=== PATIENT | male | born 1930 | race Caucasian/White ===

== ENCOUNTER 2016-06-18 12:02 | Emergency (ER) | payer OTHER ==
[2016-06-18 12:19] VITALS: BP 100/60; TEMP 98.1; BMI 29.6
--- NOTE | 2016-06-18 12:28 | ED.PDOC ---
General ED Provider: Dr. BILL CAMACHO JR Chief Complaint: Altered Mental Status Stated Complaint: called daughter at 1130 AM possibly began at 11 or 1115 AM had set out lunch and taken a shower unsure what he was to do, unable to see could not recallw [employer] store he was to go to(had not left home);pt states he became confused earlier today--on his way to grocery and couldnt remember his way--eye sight was blurred--able to contact family --is alert now and able to recall event--recent onset of a-fib--was on blood-thinner briefly-while waiting for echo-4 weeks ago[End]98.1 83 20 98% 100/60 06/16 Time Seen by Physician: 12:28 Mode of Arrival: Walk-In Information Source: Patient Exam Limitations: No limitations Primary Care Provider: ABIGAIL VELAZQUEZ Nursing and Triage Documentation Reviewed and Agree: No Review of Systems - Review Of Systems Constitutional: Reports: No symptoms Eyes: Reports: 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) Ears, Nose, Mouth, Throat: Reports: No symptoms Respiratory: Reports: No symptoms Cardiac: Reports: No symptoms GI: Reports: No symptoms : Reports: No symptoms Musculoskeletal: Reports: No symptoms Skin: Reports: No symptoms Neurological: Reports: Cognitive dysfunction (confusion but able to call relatives) Endocrine: Reports: No symptoms Hematologic/Lymphatic: Reports: No symptoms All Other Systems: Other Past Medical History - Past Medical History Endocrine: Reports: Dyslipidemia (Zocor), Other ((Vitamin B-12)) Cardiovascular: Reports: CAD (Aspirin), A-Fib Respiratory: Reports: None Hematological: Reports: None Gastrointestinal: Reports: GERD (Prilosec) Genitourinary: Reports: Other (prosthyper= alfuzosin) Neuro/Psych: Reports: None, TIA (06/30/1986) Musculoskeletal: Reports: None Cancer: Reports: Other (afib cad macular degeneration--bladder ca ) Other Pertinent Past Medical History: macular degeneration - Surgical History General Surgical History: Reports: Other - Family History Family History: Reports: Unknown - Social History Smoking Status: Former smoker Hx Substance Use: No Alcohol Screening: None Physical Exam - Physical Exam Appearance: Well-appearing Eyes: JOHAN (unable to count fingers on right), EOMI, Conjunctiva clear ENT: Ears normal, Nose normal, Oropharynx normal Neck: Supple Respiratory: Airway patent, Breath sounds clear, Breath sounds equal, Respirations nonlabored Cardiovascular: Pulses normal, No rub, No murmur, Irregular rhythm GI/: Soft, Nontender, No masses, Bowel sounds normal, No Organomegaly Musculoskeletal: Normal strength, ROM intact, No edema, No calf tenderness Skin: Warm, Dry, Normal color Neurological: Sensation intact Psychiatric: Affect appropriate, Mood appropriate, Anxious Re-Evaluation - Re-Evaluation Time of Re-Evaluation: 15:42 (disc with tech- normal flows) Physician Notification - Case Discussed Physician Notified: fareed Time of Notification: 15:30 (discussed admission PMD recomendultrasound and followup in hospital for behavioral medicine if normal) Critical Care Note - Critical Care Note Total Time (mins): 20 Course - Course Hematology/Chemistry: 06/18/16 13:00 06/18/16 13:00 Orders, Labs, Meds: Lab Review 06/18/16 13:00 WBC 7.29 RBC 3.70 L Hgb 11.5 L Hct 34.0 L MCV 91.9 MCH 31.1 H MCHC 33.8 RDW Coeff of Thanh 13.9 Plt Count 211 Immature Gran % (Auto) 0.3 Neut % (Auto) 62.3 Lymph % (Auto) 26.1 Yates % (Auto) 7.5 Eos % (Auto) 3.3 Baso % (Auto) 0.5 Immature Gran # (Auto) 0.0 Neut # 4.5 Lymph # 1.9 Yates # 0.6 Eos # 0.2 Baso # 0.0 D-Dimer 544.33 H Sodium 139 Potassium 4.5 Chloride 106 Carbon Dioxide 24 Anion Gap 13.5 BUN 26 H Creatinine 1.35 H Estimated GFR (MDRD) 50.00 BUN/Creatinine Ratio 19.25 Glucose 107 Calcium 9.2 Total Bilirubin 0.75 AST 19 ALT 21 Alkaline Phosphatase 55 L Total Creatine Kinase 101 Troponin I 0.0200 B-Natriuretic Peptide 208 H Total Protein 7.2 Albumin 4.1 Globulin 3.1 Albumin/Globulin Ratio 1.32 Orders Category Date Time Status EKG-(ED ONLY) Stat CARDIO 06/18/16 12:34 Completed HOLTER MONITOR-(ED ONLY) Stat CARDIO 06/18/16 15:14 Ordered B-TYPE NATRIURETIC PEPTIDE Stat LAB 06/18/16 13:00 Completed CBC W/ AUTO DIFF Stat LAB 06/18/16 13:00 Completed COMPREHENSIVE METABOLIC PANEL Stat LAB 06/18/16 13:00 Completed CREATINE KINASE Stat LAB 06/18/16 13:00 Completed D-DIMER Stat LAB 06/18/16 13:00 Completed TROPONIN I Stat LAB 06/18/16 13:00 Completed CHEST, 1V AP ONLY Stat RADS 06/18/16 12:[address] HEAD W/O CONTRAST Stat RADS 06/18/16 12:34 Completed U/S DOPPLER CAROTID Stat RADS 06/18/16 15:07 Taken Vital Signs: Temp Pulse Resp BP Pulse Ox 06/18/16 12:03 98.1 F 83 20 100/60 98 Departure - Departure Time of Disposition: 15:41 Disposition: HOME SELF-CARE Discharge Problem: TIA (transient ischemic attack) Qualifiers: Transient cerebral ischemia type: unspecified Qualifier Code: (G45.9) Transient cerebral ischemic attack, unspecified Instructions: Transient Ischemic Attack (ED), Self Care Measures After a Stroke (ED) Condition: Good Pt referred to PMD for follow-up: Yes Additional Instructions: resume eliquis follow up with Dr Velazquez in the morning return if worse recommend check hourly next 24 hours for mental or physical changes Prescriptions: Apixaban [Eliquis] 5 mg PO BID #60 tablet Allergies/Adverse Reactions: Allergies No Known Allergies Allergy (Verified 06/18/16 12:13) Home Medications: Ambulatory Orders Alfuzosin HCl [Alfuzosin HCl ER] 10 mg PO DAILY 06/19/13 Aspirin [Aspirin EC] 81 mg PO DAILYWM 06/19/13 Beta-Carotene(A) W-C & E/Min [Ocutabs Tablet] 1 each PO BID 06/19/13 Cyanocobalamin (Vitamin B-12) [Vitamin B-12] 1,000 mcg PO DAILY 06/19/13 Omeprazole [Prilosec] 20 mg PO QDAC 06/19/13 Simvastatin [Zocor] 40 mg PO BEDTIME 06/19/13 Apixaban [Eliquis] 5 mg PO BID #60 tablet 06/18/16
--- NOTE | 2016-06-18 13:03 | DI ---
EXAM: Chest one view, frontal view only. HISTORY: Chest pain. COMPARISON: None available. FINDINGS: The heart size is normal. Median sternotomy wires are present. There is no pulmonary va scular congestion. Calcified pleural plaquing noted, consistent with prior asbestos exposure. The lungs are clear. No pleural effusion or pneumothorax is seen. No acute osseous abnormality is iden tified. IMPRESSION: No acute cardiopulmonary process.
--- NOTE | 2016-06-18 13:04 | CT ---
EXAM: CT head without contrast HISTORY: Confusion COMPARISON: CT head 07/15/2007 TECHNIQUE: Serial axial images of the brain were obtained from the skull base to the vertex without IV contrast. FINDINGS: The ventricles, cisterns and sulci are unchanged with mild generalized volume loss. The g ray-white matter junction is maintained. There is minimal scattered low attenuation in the perivent ricular white matter.No midline shift or mass is identified. There is no abnormal intra or extra-ax ial fluid collection. The paranasal sinuses demonstrates scattered mucosal thickening with leftward nasal septal deviation. The mastoid air cells are clear. The osseous calvarium is intact. IMPRESSION: 1. No acute intracranial abnormality or hemorrhage. If there is concern for stroke, MRI brain may be obtained. 2. Scattered microangiopathy and generalized volume loss. 3. Mild scattered mucosal thickening and nasal septal deviation.
[2016-06-18 13:07] LABS: BASOPHILS % (AUTO) 0.5 % (0.0-3.0); EOSINOPHILS # (AUTO) 0.2 K/ul (0.0-0.7); EOSINOPHILS % (AUTO) 3.3 % (0.0-7.0); HEMOGLOBIN 11.5 g/dl (14.0-18.0); IMMATURE GRANULOCYTE % (AUTO) 0.3 % (0.0-5.0); LYMPHOCYTES # (AUTO) 1.9 K/uL (0.60-3.4); LYMPHOCYTES % (AUTO) 26.1 (10.0-50.0); MEAN CORPUSCULAR HEMOGLOBIN 31.1 pg (27.0-31.0); MEAN CORPUSCULAR HGB CONC 33.8 (31.8-35.4); MEAN CORPUSCULAR VOLUME 91.9 fl (80.0-94.0); MONOCYTES # (AUTO) 0.6 K/uL (0.4-2.0); MONOCYTES % (AUTO) 7.5 (0-10); NEUTROPHILS # (AUTO) 4.5 K/ul (2.0-6.9); NEUTROPHILS % (AUTO) 62.3; PLATELET COUNT 211 10^3/uL (140-440); WHITE BLOOD COUNT 7.29 K/ul (4.2-10.2)
[2016-06-18 13:35] LABS: ALBUMIN 4.1 g/dL (3.4-5.0); ALBUMIN/GLOBULIN RATIO 1.32; ANION GAP 13.5; BILIRUBIN,TOTAL 0.75 mg/dL (0.00-1.20); BUN/CREATININE RATIO 19.25; CALCIUM 9.2 mg/dL (8.2-10.2); CREATININE 1.35 mg/dL (0.60-1.10); POTASSIUM 4.5 mmol/L (3.5-5.1); TOTAL PROTEIN 7.2 g/dL (5.8-8.1); TROPONIN I 0.02 ng/ml (0.0000-0.4000)
--- NOTE | 2016-06-18 16:14 | US ---
EXAM: ULTRASOUND CAROTID DUPLEX, BILATERAL HISTORY: TIA FINDINGS: Wilson-scale ultrasound, color Doppler and spectral analysis was performed. Velocities are in meters per second. By wilson scale and color Doppler imaging, there were regions of heterogeneous plaque formation ident ified within the carotid bulbs and internal carotid arteries. These regions of plaque appeared to r emain less than 50% vessel diameter. RIGHT: External carotid artery peak systolic velocity: 0.9 Common carotid artery peak systolic velocity/end diastolic velocity: 0.6/0.1 Internal carotid artery peak systolic velocity: 0.9 ICA/CCA peak systolic velocity ratio: 1.5 ICA end diastolic velocity: 0.1 LEFT: External carotid artery peak systolic velocity: 0.6 Common carotid artery peak systolic velocity/end diastolic velocity: 0.7/0.1 Internal carotid artery peak systolic velocity: 0.8 ICA/CCA peak systolic velocity ratio: 1.1 ICA end diastolic velocity: 0.2 The right vertebral artery was not seen. The left vertebral artery was antegrade. IMPRESSION: 1. By wilson scale and color Doppler imaging, there were regions of heterogeneous plaque formation id entified within the carotid bulbs and internal carotid arteries. These regions of plaque appeared t o remain less than 50% vessel diameter. 2. Internal carotid artery peak systolic velocities and ICA/CCA peak systolic velocity ratios indic ate no hemodynamically significant stenosis bilaterally. 3. The right vertebral artery was not seen which may be related to technical difficulties, small ca liber or occlusion. Left vertebral artery was normally antegrade.
--- NOTE | 2016-06-22 10:29 | HOLTER ---
PATIENT INFORMATION AND COMMENTS Indications: TIA __ Patient Medications: SIMVASTATIN, OMEPRAZOLE, BETA CAROTENE, ALFUZOSIN, VITAMIN B-12, ASA __ Pre-procedure Summary: Protocol: Standard Heart Rate Started: 06/18/161626 Minimum: 47/MIN Weight: 195 LBS Ended: 06/19/161626 Maximum: 145/MIN Height: 68" Duration: 21 HOURS Average: 74/MIN _ INTERPRETATIONS/OBSERVATIONS: 1. BASIC RHYTHM: A-FIB WITH RATE 47/MINUTE TO 125/MINUTE, AVERAGE 74/MINUTE 2. PVC'S- 1 TO 2% OF BEATS SCANNED, NO SALVOS OR V-TACH 3. NO ST-T WAVE CHANGES FROM BASELINE 4. NO CORRELATION WITH ACTIVITY LOG MTDD
== END 2016-06-18 16:38 | disposition home or self-care (01) ==
LOC: ED 12:02
DX: G45.9 Transient cerebral ischemic attack, unspecified (principal); I48.91 Unspecified atrial fibrillation; I45.10 Unspecified right bundle-branch block; E78.5 Hyperlipidemia, unspecified; I25.10 Atherosclerotic heart disease of native coronary artery without angina pectoris; H35.30 Unspecified macular degeneration; Z79.899 Other long term (current) drug therapy; Z86.73 Personal history of transient ischemic attack (TIA), and cerebral infarction without residual deficits
CPT/HCPCS: 36415; 80053; 82550; 83880; 84484; 85025; 85379; 93005; 93010; 99283

== ENCOUNTER 2016-06-19 12:55 | Outpatient (CLI) ==
[2016-06-18 12:19] VITALS: BMI 29.6
--- NOTE | 2016-06-19 20:59 | MRI ---
EXAM: Brain MRI without contrast. HISTORY: Transient ischemic attack. COMPARISON: Head CT 06/18/2016. TECHNIQUE: Multiplanar, multisequence MR images were acquired of the brain without contrast. FINDINGS: The midline structures are central and the craniocervical junction is unremarkable. The ventricles, sulci and cisterns are normal for the patient's age. There are no abnormal extra-axial fluid collections. The brain parenchyma has no diffusion restriction to suggest acute hypoperfusion or infarction. The re is a chronic 4.6 mm infarct in the inferior right cerebellum. There is a thin rim of periventric ular T2 hyperintensity and small T2 hyperintensities are present in the supratentorial white matter compatible with mild leukomalacia. There is no abnormal dark gradient echo signal to suggest intrac ranial hemorrhage. The corpus callosum is normal. The sella is expanded and the pituitary gland is small and flattened inferiorly consistent with a mostly empty sella. There are no intraorbital masses. There has been previous lens surgery bilaterally. There is mild undulation of the nasal septum with a small left nasal septal spur. The frontal sinus is hypoplasti c. Middle ears and mastoids are clear. Flow voids are present in the major intracranial arteries and dural venous sinuses. The superior sa gittal sinus preferentially drains into the left transverse dural sinus, sigmoid sinus and internal jugular vein which are dominant to the right. Arachnoid granulations are present in both transverse dural sinuses. IMPRESSION: 1. No intracranial mass, hemorrhage or acute cerebral infarct. 2. 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 3. Mostly empty sella.
== END 2016-06-19 12:56 | disposition home or self-care (01) ==
LOC: RAD 12:55
PROVIDERS: ATTEND Family Medicine
DX: I48.2 Chronic atrial fibrillation (principal); I66.9 Occlusion and stenosis of unspecified cerebral artery

== ENCOUNTER 2017-09-16 16:41 | Inpatient (IN) | payer OTHER ==
[2017-09-16] MEDS ORDERED: PULMICORT 0.5 MG/2 ML NEB STA (18:30)
[2017-09-16] MEDS ORDERED: XOPENEX 1.25 MG NEB STA (18:30)
--- NOTE | 2017-09-16 18:34 | ED.PDOC ---
General ED Provider: Dr. ABIGAIL GORE Chief Complaint: Shortness of Air Stated Complaint: Respiratory congestion, shortness of breath. Onset last few days. Hx of bronchitis but does not utilize resp meds. 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 Time Seen by Physician: 18:15 Mode of Arrival: Walk-In Information Source: Patient, Family Exam Limitations: No limitations Primary Care Provider: ABIGAIL VELAZQUEZ Nursing and Triage Documentation Reviewed and Agree: Yes Reviewed sepsis parameters & appropriate labs ordered?: Yes System Inflammatory Response Syndrome: Not Applicable Sepsis Protocol: For patient's 13 years and over: Temp is 96.8 and below OR 101 and greater Pulse >90 BPM Resp >20/minute Acutely Altered Mental Status Are patient's symptoms suggestive of a new infection, such as: -Pneumonia -Skin, Soft Tissue -Endocarditis -UTI -Bone, Joint Infection -Implantable Device -Acute Abdominal Infection -Wound Infection -Meningitis -Blood Stream Catheter Infection -Unknown System Inflammatory Response Syndrome: Not Applicable Respiratory Complaint Exam - Shortness of Air Complaint/Exam Symptoms Are: Still present Timing: Intermittent Initial Severity: Moderate Current Severity: Moderate Character: Reports: Dyspnea at rest, Dyspnea on exertion Aggravating: Reports: Movement, Recumbent position Alleviating: Reports: Bronchodilators, Oxygen, Upright position Associated Signs and Symptoms: Reports: Cough, Wheezing, Nasal congestion Related History: Reports: Similar episode History of Healthcare-Acquired Pneumonia: No Pulmonary Embolism Risk Factors: Reports: None Cardiac Risk Factors: Reports: None Pseudomonas Risk Factors: Reports: None Tuberculosis Risk Factors: Reports: None Home Oxygen Use: No Recent Stress Test: No Recent Echo/LV Function: No Respiratory Distress: Mild Stridor Present: No Tracheal Deviation: No Subcutaneous Emphysema: No Accessory Muscle Use: No Retractions: Not Present Diminished Breath Sounds: Yes Prolonged Expiratory Phase: No Unable to Speak Full Sentences: No Fatigue: Yes Leg Swelling: No Sydney's Sign Present: No Grunting Respirations: No Kussmaul Respirations: No Differential Diagnoses: COPD Exacerbation, Bronchospasm Review of Systems - Review Of Systems Constitutional: Reports: No symptoms Eyes: Reports: No symptoms Ears, Nose, Mouth, Throat: Reports: No symptoms Respiratory: Reports: No symptoms, Cough, Orthopnea, Short of air, Wheezing Cardiac: Reports: No symptoms GI: Reports: No symptoms : Reports: No symptoms Musculoskeletal: Reports: No symptoms Skin: Reports: No symptoms Neurological: Reports: No symptoms Endocrine: Reports: No symptoms Hematologic/Lymphatic: Reports: No symptoms All Other Systems: Reviewed and Negative Past Medical History - Past Medical History Endocrine: Reports: Dyslipidemia (Zocor), Other ((Vitamin B-12)) Cardiovascular: Reports: CAD (Aspirin), A-Fib Respiratory: Reports: None Hematological: Reports: None Gastrointestinal: Reports: GERD (Prilosec) Genitourinary: Reports: Other (prosthyper= alfuzosin) Neuro/Psych: Reports: None, TIA (06/30/1986) Musculoskeletal: Reports: None Cancer: Reports: Other (afib cad macular degeneration--bladder ca ) Other Pertinent Past Medical History: macular degeneration - Surgical History General Surgical History: Reports: Other - Family History Family History: Reports: Unknown - Social History Smoking Status: Former smoker Hx Substance Use: No Alcohol Screening: None - Immunizations Tetanus Shot up to Date: No Physical Exam - Physical Exam Appearance: Ill-appearing, Well-nourished, Obese Ill-appearing: Moderate Pain Distress: None Eyes: JOHAN, EOMI, Conjunctiva clear ENT: Ears normal, Nose normal, Oropharynx normal Respiratory: Airway patent, Breath sounds diminished, Rhonchi, Wheezes Cardiovascular: RRR, Pulses normal, No rub, No murmur GI/: Soft, Nontender, No masses, Bowel sounds normal, No Organomegaly Musculoskeletal: Normal strength, ROM intact, No edema, No calf tenderness Skin: Warm, Dry, Normal color Neurological: Sensation intact, Motor intact, Reflexes intact, Cranial nerves intact, Alert, Oriented Psychiatric: Affect appropriate, Mood appropriate Physician Notification - Case Discussed Physician Notified: Dr Bucio Time of Notification: 20:10 (Agreed to accept for admission) Critical Care Note - Critical Care Note Total Time (mins): 30 Course - Course Hematology/Chemistry: 09/16/17 18:44 09/16/17 18:44 Orders, Labs, Meds: Lab Review 09/16/17 09/16/17 09/16/17 18:28 18:32 18:44 WBC 5.39 RBC 3.30 L Hgb 10.5 L Hct 30.1 L MCV 91.2 MCH 31.8 H MCHC 34.9 RDW Coeff of Thanh 14.6 Plt Count 164 Immature Gran % (Auto) 0.2 Neut % (Auto) 81.6 Lymph % (Auto) 9.8 L [place] % (Auto) 8.2 Eos % (Auto) 0.2 Baso % (Auto) 0.0 Immature Gran # (Auto) 0.0 Neut # (Auto) 4.4 Lymph # (Auto) 0.5 L [place] # (Auto) 0.4 Eos # (Auto) 0.0 Baso # (Auto) 0.0 ESR D-Dimer (Manual) Puncture Site Rrad O2 Saturation 95.0 ABG pH 7.437 ABG pCO2 32.4 L ABG pO2 72.0 L ABG HCO3 21.8 L ABG Total CO2 23 ABG Base Excess -2 Hugo Test + FiO2 % 21.0 Sodium Potassium Chloride Carbon Dioxide Anion Gap BUN Creatinine Estimated GFR (MDRD) BUN/Creatinine Ratio Glucose Lactic Acid Calcium Total Bilirubin AST ALT Alkaline Phosphatase Troponin I B-Natriuretic Peptide Total Protein Albumin Globulin Albumin/Globulin Ratio Procalcitonin Influ A Molecular Assay Negative by naat Influ B Molecular Assay Negative by naat 09/16/17 09/16/17 09/16/17 18:44 18:44 18:44 WBC RBC Hgb Hct MCV MCH MCHC RDW Coeff of Thanh Plt Count Immature Gran % (Auto) Neut % (Auto) Lymph % (Auto) [place] % (Auto) Eos % (Auto) Baso % (Auto) Immature Gran # (Auto) Neut # (Auto) Lymph # (Auto) [place] # (Auto) Eos # (Auto) Baso # (Auto) ESR 25 H D-Dimer (Manual) Puncture Site O2 Saturation ABG pH ABG pCO2 ABG pO2 ABG HCO3 ABG Total CO2 ABG Base Excess Hugo Test FiO2 % Sodium 134 L Potassium 3.8 Chloride 104 Carbon Dioxide 22 L Anion Gap 11.8 BUN 15 Creatinine 1.00 Estimated GFR (MDRD) 71.00 BUN/Creatinine Ratio 15.00 Glucose 124 H Lactic Acid Calcium 7.9 L Total Bilirubin 0.7 AST 22 ALT 16 Alkaline Phosphatase 67 Troponin I B-Natriuretic Peptide 376 H Total Protein 6.3 Albumin 3.7 Globulin 2.6 Albumin/Globulin Ratio 1.42 Procalcitonin Influ A Molecular Assay Influ B Molecular Assay 09/16/17 09/16/17 09/16/17 18:44 18:44 18:44 WBC RBC Hgb Hct MCV MCH MCHC RDW Coeff of Thanh Plt Count Immature Gran % (Auto) Neut % (Auto) Lymph % (Auto) [place] % (Auto) Eos % (Auto) Baso % (Auto) Immature Gran # (Auto) Neut # (Auto) Lymph # (Auto) [place] # (Auto) Eos # (Auto) Baso # (Auto) ESR D-Dimer (Manual) 402.62 Puncture Site O2 Saturation ABG pH ABG pCO2 ABG pO2 ABG HCO3 ABG Total CO2 ABG Base Excess Hugo Test FiO2 % Sodium Potassium Chloride Carbon Dioxide Anion Gap BUN Creatinine Estimated GFR (MDRD) BUN/Creatinine Ratio Glucose Lactic Acid Calcium Total Bilirubin AST ALT Alkaline Phosphatase Troponin I 0.0260 B-Natriuretic Peptide Total Protein Albumin Globulin Albumin/Globulin Ratio Procalcitonin < 0.05 Influ A Molecular Assay Influ B Molecular Assay 09/16/17 18:59 WBC RBC Hgb Hct MCV MCH MCHC RDW Coeff of Thanh Plt Count Immature Gran % (Auto) Neut % (Auto) Lymph % (Auto) [place] % (Auto) Eos % (Auto) Baso % (Auto) Immature Gran # (Auto) Neut # (Auto) Lymph # (Auto) [place] # (Auto) Eos # (Auto) Baso # (Auto) ESR D-Dimer (Manual) Puncture Site O2 Saturation ABG pH ABG pCO2 ABG pO2 ABG HCO3 ABG Total CO2 ABG Base Excess Hugo Test FiO2 % Sodium Potassium Chloride Carbon Dioxide Anion Gap BUN Creatinine Estimated GFR (MDRD) BUN/Creatinine Ratio Glucose Lactic Acid 17.6 Calcium Total Bilirubin AST ALT Alkaline Phosphatase Troponin I B-Natriuretic Peptide Total Protein Albumin Globulin Albumin/Globulin Ratio Procalcitonin Influ A Molecular Assay Influ B Molecular Assay Orders Category Date Time Status ADMIT PATIENT [facility]PAT[facility] ADMISSION 09/16/17 20: 03 Active ABG DRAW REQUEST Stat CARDIO 09/16/17 18:30 Ordered ABG DRAW REQUEST Timed CARDIO 09/17/17 06:00 Ordered EKG-(ED ONLY) Stat CARDIO 09/16/17 18:29 Ordered NEBULIZER TREATMENT Stat CARDIO 09/16/17 18:31 Ordered OXYGEN Routine CARDIO 09/16/17 20:03 Ordered SPUTUM INDUCTION Stat CARDIO 09/16/17 20:03 Ordered ACTIVITY .Up ad Emily CARE 09/16/17 20:03 Ordered INTAKE & OUTPUT Q8HR CARE 09/16/17 20:03 Ordered TELEMETRY MONITORING TELE CARE 09/16/17 20:04 Active VITAL SIGNS Q4HR CARE 09/16/17 20:03 Ordered 2 GRAM SODIUM DIET DIETARY 09/16/17 Dinner Ordered IV [ED IV/MEDIPORT/POWERPORT] .ONCE EMERGENCY 09/16/17 18:44 Active ABG Stat LAB 09/16/17 18:28 Completed ABG Stat LAB 09/17/17 07:00 Ordered BLOOD CULTURE (ED ONLY) Stat LAB 09/16/17 18:59 Received BLOOD CULTURE Stat LAB 09/16/17 21:00 Ordered BNP [B-TYPE NATRIURETIC PEPTIDE] Stat LAB 09/16/17 18:44 Completed CBC W/ AUTO DIFF Stat LAB 09/16/17 18:44 Completed CBC W/ AUTO DIFF Stat LAB 09/17/17 06:00 Ordered CMP [COMPREHENSIVE METABOLIC PANEL] Stat LAB 09/16/17 18:44 Completed COMPREHENSIVE METABOLIC PANEL Stat LAB 09/17/17 06:00 Ordered D-DIMER Stat LAB 09/16/17 18:44 Completed ESR Stat LAB 09/16/17 18:44 Completed FLU A & B MOLECULAR [FLU A/B MOLECULAR] Stat LAB 09/16/17 18:32 Completed LACTIC ACID Stat LAB 09/16/17 18:59 Completed PROCALCITONIN Stat LAB 09/16/17 18:44 Completed SPUTUM CULTURE Stat LAB 09/16/17 18:28 Uncollected TROPONIN I Stat LAB 09/16/17 18:44 Completed TROPONIN I Stat LAB 09/16/17 22:30 Ordered 0.9 % Sodium Chloride [Saline Flush] MEDS 09/16/17 18:45 Ordered 1 syr IVF PRN PRN Albuterol Sulfate 0.083% Neb [Albuterol 0.083% Neb] MEDS 09/16/17 20:30 Ordered 1 vial IH Q6H Alfuzosin HCl [Uroxatral] MEDS 09/17/17 09:00 Ordered 10 mg PO DAILY Apixaban [Eliquis] MEDS 09/16/17 21:00 Ordered 5 mg PO BID Aspirin [Aspirin EC] MEDS 09/17/17 08:00 Ordered 81 mg PO DAILYWM Azithromycin [Zithromax] MEDS 09/16/17 18:47 Discontinued 500 mg PO ONCE STA Beta-Carotene(A)-Vits C,E/Mins [Ocutabs Tablet] MEDS 09/16/17 21:00 Ordered 1 each PO BID Budesonide [Pulmicort 0.5 mg/2 ml] MEDS 09/16/17 18:30 Discontinued 1 vial NEB ONCE STA Ceftriaxone Sodium [Rocephin] MEDS 09/16/17 19:08 Discontinued 1 gm .ROUTE .STK-MED ONE Ceftriaxone Sodium [Rocephin] 1 gm MEDS 09/16/17 18:47 Discontinued 0.9 % Sodium Chloride [Sodium Chloride] 50 ml IV ONCE Cyanocobalamin (Vitamin B-12) [Vitamin B-12] MEDS 09/17/17 09:00 Ordered 1,000 mcg PO DAILY Furosemide [Lasix] MEDS 09/16/17 20:03 Stat 40 mg IVP ONCE STA Levalbuterol HCl [Xopenex 1.25 mg] MEDS 09/16/17 18:30 Discontinued 1 vial NEB ONCE STA Memantine HCl [Namenda Xr] MEDS 09/17/17 09:00 Ordered 1 tab PO DAILY Methylprednisolone Sod Succ/Pf [Solu-Medrol 125 mg] MEDS 09/16/17 20:00 Stop Req 75 mg IM ONCE STA Methylprednisolone Sod Succ/Pf [Solu-Medrol 125 mg] MEDS 09/16/17 20:02 Stat 80 mg IVP ONCE STA Omeprazole [Prilosec] MEDS 09/17/17 06:30 Ordered 20 mg PO QDAC Simvastatin [Zocor] MEDS 09/16/17 21:00 Ordered 40 mg PO BEDTIME Sodium Chloride 0.9% [Sodium Chloride] 1,000 ml MEDS 09/16/17 20:30 Ordered IV 40 mls/hr CHEST, 1V AP ONLY Stat RADS 09/16/17 18:29 Completed CHEST, 2 VIEWS PA & LAT Stat RADS 09/17/17 06:00 Ordered Medications Generic Name Dose Route Start Last Admin Trade Name Freq PRN Reason Stop Dose Admin Albuterol Sulfate 1 vial 09/16/17 20:30 Albuterol 0.083% Neb IH Q6H GURMEET Alfuzosin HCl 10 mg 09/17/17 09:00 Uroxatral PO DAILY GURMEET Apixaban 5 mg 09/16/17 21:00 Eliquis PO BID GURMEET Aspirin 81 mg 09/17/17 08:00 Aspirin Ec PO DAILYWM GURMEET Sodium Chloride 1,000 mls @ 40 mls/hr 09/16/17 20:30 Sodium Chloride IV .Q25H GURMEET Non-Formulary Medication 1 each 09/16/17 21:00 Beta-Carotene(A)-Vits C,E/Mins [Ocutabs Tablet] PO BID GURMEET Non-Formulary Medication 1,000 mcg 09/17/17 09:00 Cyanocobalamin (Vitamin B-12) [Vitamin B-12] PO DAILY GURMEET Non-Formulary Medication 1 tab 09/17/17 09:00 Memantine Hcl [Namenda Xr] PO DAILY GURMEET Omeprazole 20 mg 09/17/17 06:30 Prilosec PO QDAC GURMEET Simvastatin 40 mg 09/16/17 21:00 Zocor PO BEDTIME GURMEET Sodium Chloride 1 syr 09/16/17 18:45 09/16/17 19:18 Saline Flush IVF 1 syr PRN PRN Administration To flush IV Discontinued Medications Generic Name Dose Route Start Last Admin Trade Name Freq PRN Reason Stop Dose Admin Azithromycin 500 mg 09/16/17 18:47 09/16/17 19:17 Zithromax PO 09/16/17 18:48 500 mg ONCE STA Administration Budesonide 1 vial 09/16/17 18:30 09/16/17 18:35 Pulmicort 0.5 Mg/2 Ml NEB 09/16/17 18:31 1 vial ONCE STA Administration Furosemide 40 mg 09/16/17 20:03 Lasix IVP 09/16/17 20:04 ONCE STA Ceftriaxone Sodium 1 gm/ 50 mls @ 75 mls/hr 09/16/17 18:47 09/16/17 19:17 Sodium Chloride IV 09/16/17 19:26 75 mls/hr ONCE STA Administration Levalbuterol HCl 1 vial 09/16/17 18:30 09/16/17 18:35 Xopenex 1.25 Mg NEB 09/16/17 18:31 1 vial ONCE STA Administration Methylprednisolone Sodium Succinate 75 mg 09/16/17 20:00 Solu-Medrol 125 Mg IM 09/16/17 20:01 ONCE STA Methylprednisolone Sodium Succinate 80 mg 09/16/17 20:02 Solu-Medrol 125 Mg IVP 09/16/17 20:03 ONCE STA Vital Signs: Temp Pulse Resp BP Pulse Ox 09/16/17 18:53 145/80 H 09/16/17 18:36 84 20 114/86 94 L 09/16/17 17:52 145/63 H 09/16/17 17:42 87 25 H 139/65 94 L 09/16/17 16:42 97.6 F 91 H 20 168/85 H 95 Departure - Departure Time of Disposition: 20:20 Disposition: ADMITTED INPATIENT Discharge Problem: Pneumonia, COPD with acute exacerbation, CHF (congestive heart failure) Instructions: COPD (Chronic Obstructive Pulmonary Disease) (ED) Condition: Stable Pt referred to PMD for follow-up: Yes (Dr Gan) IPMP verified?: No Allergies/Adverse Reactions: Allergies No Known Allergies Allergy (Verified 09/16/17 16:55) Home Medications: Ambulatory Orders Aspirin [Aspirin EC] 81 mg PO DAILYWM 06/19/13 Beta-Carotene(A)-Vits C,E/Mins [Ocutabs Tablet] 1 each PO BID 06/19/13 Cyanocobalamin (Vitamin B-12) [Vitamin B-12] 1,000 mcg PO DAILY 06/19/13 Omeprazole [Prilosec] 20 mg PO QDAC 06/19/13 RX: Alfuzosin HCl [Alfuzosin HCl ER] 10 mg PO DAILY 06/19/13 Simvastatin [Zocor] 40 mg PO BEDTIME 06/19/13 Apixaban [Eliquis] 5 mg PO BID #60 tablet 06/18/16 RX: Memantine HCl [Namenda Xr] 1 tab PO DAILY 09/16/17 Disposition Discussed With: Patient, Family
[2017-09-16] MEDS ORDERED: ZITHROMAX PO STA (18:47)
[2017-09-16] MEDS ORDERED: ROCEPHIN 1 GM in SODIUM CHLORIDE 50 ML IV STA (18:47)
[2017-09-16] MEDS ORDERED: ROCEPHIN ONE (19:08)
--- NOTE | 2017-09-16 19:16 | DI ---
EXAM: Single view chest. HISTORY: Dyspnea congestion. COMPARISON: 06/18/2016 FINDINGS: A single portable AP view of the chest. There are postoperative changes from prior CABG. LUNGS: The lung volumes are normal. There are densities in the upper lobes bilaterally which are unch anged with prior study may be secondary to calcified pleural plaque or healing rib fractures. These are seen on the prior study and are unchanged. There is no lobar consolidation or effusion. The pulm onary interstitium is normal. There are no suspicious nodules. MEDIASTINUM: The heart is enlarged. There is mild interstitial prominence, left greater than right. The aorta is tortuous and calcified. OSSEOUS STRUCTURES: The osseous structures show mild degenerative changes consistent with age. The so ft tissues are unremarkable. IMPRESSION: 1. Cardiomegaly and interstitial prominence. Findings suggest early edema. 2. Bilateral upper lobe calcifications which may be due to calcified pleural plaque or healing rib f ractures. A similar appearance was seen on the prior study.
[2017-09-16] MEDS ORDERED: SOLU-MEDROL 125 MG IM STA (20:00)
[2017-09-16] MEDS ORDERED: SOLU-MEDROL 125 MG IVP STA (20:02)
[2017-09-16] MEDS ORDERED: LASIX IVP STA (20:03)
[2017-09-16] MEDS ORDERED: SODIUM CHLORIDE 1,000 ML IV SCH (20:30)
[2017-09-16] MEDS ORDERED: ALBUTEROL 0.083% NEB IH SCH (20:30)
[2017-09-16] MEDS ORDERED: BETA CAROTENE VITS C E PO SCH (21:00)
[2017-09-16] MEDS ORDERED: MINS PO SCH (21:00)
[2017-09-16 21:21] VITALS: BMI 30.1
[2017-09-16] MEDS: ZOCOR PO SCH (21:41)
[2017-09-16] MEDS: ELIQUIS PO SCH (21:41)
[2017-09-17] MEDS: ALBUTEROL 0.083% NEB IH SCH ×2 (01:12→05:08)
[2017-09-17] MEDS ORDERED: ALBUTEROL 0.083% NEB IH SCH ×2 (06:00→12:00)
[2017-09-17] MEDS: PRILOSEC PO SCH (06:00)
[2017-09-17] MEDS ORDERED: ATIVAN IM STA (07:17)
[2017-09-17] MEDS ORDERED: ATIVAN IVP STA (07:17)
[2017-09-17] MEDS ORDERED: MEMANTINE HCL PO SCH (09:00)
[2017-09-17] MEDS: ASPIRIN EC PO SCH (09:26)
[2017-09-17] MEDS: UROXATRAL PO SCH (09:26)
[2017-09-17] MEDS: NAMENDA PO SCH ×2 (09:27→21:19)
[2017-09-17] MEDS: ELIQUIS PO SCH ×2 (09:27→21:19)
[2017-09-17] MEDS: BETA CAROTENE VITS C E PO SCH ×2 (09:41→21:19)
[2017-09-17] MEDS: MINS PO SCH ×2 (09:41→21:19)
[2017-09-17] MEDS: NON-FORMULARY MEDICATION (Cyanocobalamin (Vitamin B-12) [Vitamin B-12] 1,000 MCG) PO SCH (09:42)
--- NOTE | 2017-09-17 15:17 | DI ---
EXAM: Single AP view of the chest HISTORY: Chronic obstructive pulmonary disease and wheezing. COMPARISON: Chest x-ray 09/16/2017 and 06/18/2016 FINDINGS: Cardiomediastinal silhouette is unchanged with intact sternotomy wires. There is no pneumo thorax or pleural effusion. There is no consolidation or mass. Unchanged pleural calcifications are present. The osseous structures are unremarkable. IMPRESSION: 1. No acute cardiopulmonary process or consolidation. 2. Stable pleural calcifications.
[2017-09-17] MEDS ORDERED: ALBUTEROL 0.083% NEB NEB SCH (18:00)
[2017-09-17] MEDS ORDERED: LASIX IVP STA (18:25)
[2017-09-17] MEDS: ZOCOR PO SCH (21:20)
[2017-09-17] MEDS ORDERED: ALBUTEROL 0.083% NEB NEB ONE (23:29)
[2017-09-18] MEDS ORDERED: ATIVAN IVP STA (06:11)
[2017-09-18] MEDS ORDERED: LASIX IVP STA ×2 (06:11→09:01)
[2017-09-18] MEDS: PRILOSEC PO SCH (06:36)
[2017-09-18] MEDS: UROXATRAL PO SCH (08:42)
[2017-09-18] MEDS: NAMENDA PO SCH ×2 (08:42→20:27)
[2017-09-18] MEDS: NON-FORMULARY MEDICATION (Cyanocobalamin (Vitamin B-12) [Vitamin B-12] 1,000 MCG) PO SCH (08:43)
[2017-09-18] MEDS: ASPIRIN EC PO SCH (08:43)
[2017-09-18] MEDS: MINS PO SCH ×2 (08:43→20:32)
[2017-09-18] MEDS: BETA CAROTENE VITS C E PO SCH ×2 (08:43→20:32)
[2017-09-18] MEDS: ELIQUIS PO SCH ×2 (08:44→20:26)
[2017-09-18] MEDS: ZOCOR PO SCH (20:27)
[2017-09-19] MEDS: PRILOSEC PO SCH (05:45)
[2017-09-19] MEDS ORDERED: LASIX IVP STA (08:09)
[2017-09-19] MEDS: ASPIRIN EC PO SCH (08:25)
[2017-09-19] MEDS: NON-FORMULARY MEDICATION (Cyanocobalamin (Vitamin B-12) [Vitamin B-12] 1,000 MCG) PO SCH (08:25)
[2017-09-19] MEDS: MINS PO SCH (08:25)
[2017-09-19] MEDS: BETA CAROTENE VITS C E PO SCH (08:25)
[2017-09-19] MEDS: NAMENDA PO SCH (08:25)
[2017-09-19] MEDS: ELIQUIS PO SCH (08:28)
[2017-09-19] MEDS: UROXATRAL PO SCH (08:28)
[2017-09-19 09:40] VITALS: BP 141/68; TEMP 98.5
--- NOTE | 2017-10-04 09:24 | HP ---
CHIEF COMPLAINT: " I couldn't breathe." DISCUSSION: This is an 87 year old gentleman with a history of cardiomyopathy, atrial fibrillation on Eliquis as well as Dementia. He present to the [facility] Emergency Department with acute onset of shortness of breath. He has had shortness of breath associated with PND and Orthopnea. His family said that his shortness of breath with severe. He was seen in the emergency department and thought to have evidence of CHF, in the emergency department he was hypoxic with an O2 saturation of 94%. Radiographs were suggestive of a congestive heart failure process and the patient was subsequent admitted to my services for evaluation and treatment. PAST MEDICAL HISTORY: MEDICATIONS: Aspirin Vitamin B12 Prilosec Alfuzosin Zocor Eliquis Namenda XR ALLERGIES: No known drug allergies PAST MEDICAL HISTORY: History of COPD Congestive heart failure GERD Hyperlipidemia History of coronary artery disease History of atrial fibrillation History of bladder CA History of macular degeneration SOCIAL HISTORY: Previous smoker and denies any alcohol or tobacco use. FAMILY HISTORY: Reviewed and thought not to be pertinent to discussion. REVIEW OF SYSTEMS: No headaches, visual changes, tinnitus, hemoptysis, blood in the stool, urinary symptoms or seizures. Shortness of breath as well as orthopnea. PHYSICAL EXAMINATION: V/S: Temperature 97.6, pulse 92, respiratory 20, blood pressure 168/85. HEENT: Pupils are round. NECK: Supple. CHEST: Bilateral rales CARDIOVASCULAR: Regular rate and rhythm. ABDOMEN: Soft, nontender. EXTREMITIES: Distal extremities without cyanosis. Trace edema. ASSESSMENT: 1. Probably exacerbation of congestive heart failure most likely a diastolic disfunction. PLAN: 1. Echo in 2011 does reveal history of cardiomyopathy, we do not have the ability to get an echo this weekend. We will schedule this as an outpatient on discharge 2. Diuresis 3. Follow oxygen levels 4. Please see orders. MTDD
--- NOTE | 2017-10-04 09:41 | DS ---
PRINCIPAL DIAGNOSIS: Congestive heart failure mostly likely diastolic dysfunction Atrial fibrillation COPD Dementia DISCUSSION: This is an 87 year old gentleman with a history of cardiomyopathy, atrial fibrillation on Eliquis as well as Dementia. He present to the [facility] Emergency Department with acute onset of shortness of breath. He has had shortness of breath associated with PND and Orthopnea. His family said that his shortness of breath with severe. He was seen in the emergency department and thought to have evidence of CHF, in the emergency department he was hypoxic with an O2 saturation of 94%. Radiographs were suggestive of a congestive heart failure process and the patient was subsequent admitted to my services for evaluation and treatment. CLINICAL COURSE: Mr. Valencia was admitted diuresed with good improvement. His lung sounds almost clear remotely. Repeat chest x-ray revealed improvement in the pulmonary edema. His renal functions remained stable and at this point we felt that the patient would be discharged with a prescription for Lasix as well as Potassium but we are going to order an outpatient echo, his utilities service investigator is Dr. Ruano at [facility], for the repeat echo at [facility] and we will see him followup in one week. FAUSTO
== END 2017-09-19 13:10 | disposition home or self-care (01) | DRG 291 ==
LOC: ED 16:41 → MEDSURG B 20:20
PROVIDERS: ADMIT Family Medicine; ATTEND Family Medicine
DX: I50.30 Unspecified diastolic (congestive) heart failure (principal); J44.1 Chronic obstructive pulmonary disease with (acute) exacerbation; I42.9 Cardiomyopathy, unspecified; J18.9 Pneumonia, unspecified organism; R09.02 Hypoxemia; F03.90 Unspecified dementia, unspecified severity, without behavioral disturbance, psychotic disturbance, mood disturbance, and anxiety; R06.02 Shortness of breath; I48.91 Unspecified atrial fibrillation; R07.9 Chest pain, unspecified; R06.2 Wheezing; Z86.73 Personal history of transient ischemic attack (TIA), and cerebral infarction without residual deficits; Z79.01 Long term (current) use of anticoagulants; Z79.899 Other long term (current) drug therapy; Z85.51 Personal history of malignant neoplasm of bladder
CPT/HCPCS: 36415; 80048; 80053; 82803; 83605; 83880; 84145; 84484; 85025; 85379; 85651; 87040; 87502; 93005; 93010; 94640; 96365; 96375; 99285

== ENCOUNTER 2018-02-09 12:18 | Outpatient (CLI) | payer OTHER ==
--- NOTE | 2018-02-09 15:14 | MRI ---
EXAM: MRI brain without and with IV contrast. DATE: February 2018. HISTORY: Headache. TECHNIQUE: Sagittal T1W pre and postcontrast, axial T2W, axial FLAIR, axial T1W pre and postcontrast , axial DWI, coronal T1W postcontrast, and coronal T2W GRE sequences of the brain were obtained using 1.2 Adia magnet. CONTRAST: Dotarem - 17 ml IV. COMPARISON: MRI brain 06/19/2016. FINDINGS: The ventricles, cisterns, sulci and subarachnoid spaces are commensurately enlarged due to involutional change. No midline shift, mass effect or abnormal extra-axial fluid collection is appa rent. No acute infarct, hemorrhage or enhancing neoplasm is identified. No abnormal contrast enhanc ement is identified in the brain, meninges or dura. Small, confluent rim of T2W/FLAIR hyperintensity is observed in the white matter abutting each lateral ventricle. A handful of 2-4 mm, T2W/FLAIR howard ght, non-enhancing foci are scattered within the carter radiata and subcortical white matter bilatera lly. The guadalupe - white matter differentiation is normal. Tiny areas of T2W GRE dark signal within ea ch basal ganglia appear benign. No migration or diverticulation abnormality is identified. The amyg dala, hippocampus, and parahippocampal gyri are similar bilaterally. The 7th/8th cranial nerve compl exes, cerebellopontine angles, brainstem, and visible cervical spinal cord are normal. There is no c erebellar tonsillar ectopia. The pituitary gland is extremely small and flattened against the floor of the sella, with CSF filling the majority of the pituitary fossa. Corpus callosum is normal in siz e and configuration. Left vertebral artery is dominant. Right vertebral artery is diminutive in siz e. Flow voids are present in the major intracranial arteries and in the dural venous sinuses. No an eurysm, AVM or dural venous sinus thrombosis is apparent. Appearance of the lens of each eye suggest s prior cataract surgery. There is borderline orbital proptosis bilaterally. Small of fluid signal is observed within each optic nerve sheath. No other orbit abnormality is identified. The mastoid a ir cells are unremarkable. There is no acute sinusitis. No neck mass or lymphadenopathy is detected . No calvarial neoplasm or acute fracture is evident. IMPRESSIONS: 1. No acute infarct, hemorrhage, enhancing neoplasm or hydrocephalus. 2. Mild cerebral leukomalacia - likely small vessel disease or chronic hypertensive encephalopathy. 3. Minor, benign bilateral basal ganglia mineral deposition. 4. Mild/moderate cerebral and minor cerebellar atrophy. 5. Very small pituitary gland - empty sella appearance. 6. In the right clinical setting, idiopathic intracranial hypertension could be considered given the fluid in the optic nerve sheaths and empty sella appearance.
== END 2018-02-09 12:19 | disposition home or self-care (01) ==
LOC: RAD 12:18
PROVIDERS: ATTEND Nurse Practitioner
DX: R51 Headache (principal); R53.83 Other fatigue
CPT/HCPCS: 36415; 80048; 82565

== ENCOUNTER 2018-02-23 13:52 | Outpatient (CLI) | END 2018-02-23 13:53 | disposition home or self-care (01) | LOC: LAB 13:52 | PROVIDERS: ATTEND Internal Medicine Hematology & Oncology | DX: D64.9 Anemia, unspecified (principal) | CPT/HCPCS: 36415; 80053; 82785; 84165; 85025; 86320 ==

== ENCOUNTER 2020-03-02 09:25 | Inpatient (IN) ==
[2020-03-02 11:02] VITALS: BMI 23.8
[2020-03-02 14:59] LABS: CREATINE KINASE 66.6 U/L (55-170)
[2020-03-02 15:12] LABS: TROPONIN I < 0.012 ng/ml (0.0000-0.120)
[2020-03-02 17:16] LABS: BASOPHILS % (AUTO) 0.2 % (0.0-3.0); EOSINOPHILS # (AUTO) 0.1 K/ul (0.0-0.7); EOSINOPHILS % (AUTO) 0.9 % (0.0-7.0); HEMATOCRIT 29.5 % (42.0-52.0); HEMOGLOBIN 9.8 g/dl (14.0-18.0); IMMATURE GRANULOCYTE % (AUTO) 0.4 % (0.0-5.0); LYMPHOCYTES # (AUTO) 1.7 K/uL (0.60-3.4); LYMPHOCYTES % (AUTO) 19.2 (10.0-50.0); MEAN CORPUSCULAR HEMOGLOBIN 30.6 pg (27.0-31.0); MEAN CORPUSCULAR HGB CONC 33.2 (31.8-35.4); MEAN CORPUSCULAR VOLUME 92.2 fl (80.0-94.0); MONOCYTES # (AUTO) 0.5 K/uL (0.4-2.0); NEUTROPHILS # (AUTO) 6.5 K/ul (2.0-6.9); NEUTROPHILS % (AUTO) 73.3 % (42.2-75.2); PLATELET COUNT 324 10^3/uL (140-440)
[2020-03-02 17:24] LABS: ALANINE AMINOTRANSFERASE 38.8 U/L (0-50); ALBUMIN 3.65 g/dL (3.5-5.0); ALKALINE PHOSPHATASE 103.8 U/L (56-119); ASPARTATE AMINO TRANSFERASE 38.5 U/L (17-59); BILIRUBIN,TOTAL 0.58 mg/dL (0.2-1.3); CALCIUM 8.98 mg/dL (8.4-10.2); CARBON DIOXIDE 22.3 mmol/L (22-30.0); CREATININE 1.34 mg/dL (0.60-1.10); GLUCOSE 134.5 mg/dL (74-106); POTASSIUM 4.67 mmol/L (3.5-5.1); SODIUM 136.8 mmol/L (134.5-145); TOTAL PROTEIN 7.73 g/dL (6.3-8.2)
[2020-03-02] MEDS: ELIQUIS PO SCH (20:17)
[2020-03-02] MEDS: VITAMIN A VITAMIN C VIT E MIN PO SCH (20:34)
[2020-03-02] MEDS ORDERED: SEROQUEL PO SCH ×2 (21:00)
[2020-03-02] MEDS ORDERED: ZOCOR PO SCH (21:00)
[2020-03-02] MEDS ORDERED: AUGMENTIN 875-125 MG TAB PO SCH (21:00)
[2020-03-02] MEDS ORDERED: MEMANTINE PO SCH (21:00)
[2020-03-02] MEDS ORDERED: PRILOSEC PO SCH (21:00)
[2020-03-03 06:33] VITALS: TEMP 97.9
[2020-03-03 06:55] VITALS: BP 108/56
[2020-03-03 07:53] LABS: BASOPHILS % (AUTO) 0.3 % (0.0-3.0); EOSINOPHILS # (AUTO) 0.2 K/ul (0.0-0.7); EOSINOPHILS % (AUTO) 1.9 % (0.0-7.0); HEMATOCRIT 28.3 % (42.0-52.0); HEMOGLOBIN 9.5 g/dl (14.0-18.0); IMMATURE GRANULOCYTE % (AUTO) 0.4 % (0.0-5.0); LYMPHOCYTES # (AUTO) 2.1 K/uL (0.60-3.4); LYMPHOCYTES % (AUTO) 22.9 (10.0-50.0); MEAN CORPUSCULAR HGB CONC 33.6 (31.8-35.4); MEAN CORPUSCULAR VOLUME 92.5 fl (80.0-94.0); MONOCYTES # (AUTO) 0.6 K/uL (0.4-2.0); NEUTROPHILS # (AUTO) 6.2 K/ul (2.0-6.9); NEUTROPHILS % (AUTO) 67.5 % (42.2-75.2); PLATELET COUNT 311 10^3/uL (140-440); RED BLOOD COUNT 3.06 10^6/ul (4.70-6.10); WHITE BLOOD COUNT 9.16 K/ul (4.2-10.2)
[2020-03-03 08:06] LABS: ALBUMIN 3.52 g/dL (3.5-5.0); ALKALINE PHOSPHATASE 98.4 U/L (56-119); ASPARTATE AMINO TRANSFERASE 37.5 U/L (17-59); BILIRUBIN,TOTAL 0.57 mg/dL (0.2-1.3); BLOOD UREA NITROGEN 31.8 mg/dL (9-20); CALCIUM 8.76 mg/dL (8.4-10.2); CARBON DIOXIDE 21.2 mmol/L (22-30.0); CHLORIDE 108.1 mmol/L (98-107); CREATINE KINASE 56.5 U/L (55-170); CREATININE 1.19 mg/dL (0.60-1.10); GLUCOSE 106.2 mg/dL (74-106); POTASSIUM 4.67 mmol/L (3.5-5.1); SODIUM 137.2 mmol/L (134.5-145); TOTAL PROTEIN 7.34 g/dL (6.3-8.2)
[2020-03-03 08:19] LABS: TROPONIN I < 0.012 ng/ml (0.0000-0.120)
[2020-03-03] MEDS ORDERED: ASPIRIN EC PO SCH (08:30)
[2020-03-03] MEDS ORDERED: AUGMENTIN 875-125 MG TAB PO SCH (08:30)
[2020-03-03] MEDS ORDERED: CYANOCOBALAMIN 1000 MCG PO SCH (09:00)
[2020-03-03] MEDS ORDERED: UROXATRAL PO SCH (09:00)
[2020-03-03] MEDS ORDERED: K-DUR PO SCH (09:00)
[2020-03-03] MEDS ORDERED: LASIX TAB PO SCH (09:00)
[2020-03-03] MEDS ORDERED: NAMENDA PO SCH (09:00)
[2020-03-03] MEDS: ELIQUIS PO SCH (09:12)
[2020-03-03] MEDS: VITAMIN A VITAMIN C VIT E MIN PO SCH (09:24)
[2020-03-03] MEDS ORDERED: PRILOSEC PO SCH (17:00)
--- NOTE | 2020-03-05 10:06 | ED.PDOC ---
General ED Provider: Dr. SOHAIL BARAJAS Chief Complaint: Fall Stated Complaint: Fall, chest wall pain. Time Seen by Physician: 09:35 Mode of Arrival: Ambulance Information Source: Patient, Family, EMT and Other Primary Care Provider: ABIGAIL VELAZQUEZ Nursing and Triage Documentation Reviewed and Agree: Yes Does patient meet sepsis criteria?: No System Inflammatory Response Syndrome: Not Applicable Sepsis Protocol: For patient's 13 years and over: Temp is 96.8 and below OR 101 and greater Pulse >90 BPM Resp >20/minute Acutely Altered Mental Status Are patient's symptoms suggestive of a new infection, such as: -Pneumonia -Skin, Soft Tissue -Endocarditis -UTI -Bone, Joint Infection -Implantable Device -Acute Abdominal Infection -Wound Infection -Meningitis -Blood Stream Catheter Infection -Unknown Review of Systems Review Of Systems Constitutional: Reports Weakness Ears, Nose, Mouth, Throat: Reports No symptoms Respiratory: Reports No symptoms Cardiac: Reports No symptoms GI: Reports No symptoms : Reports No symptoms Skin: Reports No symptoms Neurological: Reports Cognitive dysfunction All Other Systems: Reviewed and Negative [facility] Family History DAUGHTER Cancer Social History Smoking and tobacco status: Former smoker Additional Medical History: Diagnosis of Alzheimer's, according to Daughter, who has power of litigation attorney. Physical Exam Physical Exam Appearance: Reports No pain distress Pain Distress: Mild Eyes: Reports JOHAN ENT: Reports Ears normal Neck: Supple Respiratory: Reports Airway patent Cardiovascular: Reports Pulses normal GI/: Reports Soft Musculoskeletal: Reports Limited strength Skin: Reports Pale Neurological: Reports Disoriented Re-Evaluation Re-Evaluation Time of Re-Evaluation: 11:15 Status: Unchanged Vital Signs Stable: Yes Pain Level: This diagnosed Alzheimer's patient has no c/o chest pain. Appearance: NAD Lungs: Clear Skin: Warm and Dry Critical Care Note Critical Care Note Total Time (mins): 0 Course Course Hematology/Chemistry: 03/03/20 07:48 03/03/20 07:48 Orders, Labs, Meds: Orders Category Date Time Status ADMIT PATIENT INPATIENT .TO [facility] (NON-MONITORED ADMISSION 03/02/20 09:58 Completed BED) ADMIT PATIENT INPATIENT .TO [facility] (NON-MONITORED ADMISSION 03/02/20 10:02 Completed BED) Medications Discontinued Medications Generic Name Dose Route Start Last Admin Trade Name Tasneem PRN Reason Stop Dose Admin Alfuzosin HCl 10 mg 03/03/20 09:00 03/03/20 09:12 Alfuzosin Hcl 10 Mg Tab.Er.24h PO 10 mg DAILY GURMEET Administration Amoxicillin/Clavulanate Potassium 1 tab 03/02/20 21:00 03/02/20 20:12 Amoxicillin/Potassium Clav 875/125 Mg Tablet PO 03/05/20 20:59 1 tab BID GURMEET Administration Amoxicillin/Clavulanate Potassium 1 tab 03/03/20 08:30 03/03/20 09:11 Amoxicillin/Potassium Clav 875/125 Mg Tablet PO 03/05/20 20:59 1 tab BIDWM GURMEET Administration Apixaban 5 mg 03/02/20 21:00 03/03/20 09:12 Apixaban 5 Mg Tab PO 5 mg BID GURMEET Administration Aspirin 81 mg 03/03/20 08:30 03/03/20 09:11 Aspirin 81 Mg Tablet. PO 81 mg DAILYWM GURMEET Administration Furosemide 40 mg 03/03/20 09:00 03/03/20 09:12 Furosemide 40 Mg Tablet PO 40 mg QDAC GURMEET Administration Memantine 10 mg 03/03/20 09:00 03/03/20 09:12 Memantine Hcl 10 Mg Tablet PO 10 mg BID GURMEET Administration Non-Formulary Medication 1,000 mcg 03/03/20 09:00 03/03/20 09:25 Cyanocobalamin (Vitamin B-12) PO Not Given DAILY GURMEET Non-Formulary 1 each 03/02/20 21:00 03/02/20 20:13 Medication 1 Each ( PO 1 each Memantine [Namenda BID GURMEET Administration Xr] 10mg Cap, Sprinkle,Er 24hr Dose P Non-Formulary Medication 1 each 03/02/20 21:00 03/03/20 09:24 Vitamin A-Vitamin C-Vit E-Min PO Not Given BID GURMEET Omeprazole 20 mg 03/02/20 21:00 03/02/20 20:12 Omeprazole 20 Mg Capsule. PO 20 mg BID GURMEET Administration Omeprazole 20 mg 03/03/20 17:00 Omeprazole 20 Mg Capsule. PO BIDAC GURMEET Potassium Chloride 20 meq 03/03/20 09:00 03/03/20 09:12 Potassium Chloride 20 Meq Tab PO 20 meq DAILYWM GURMEET Administration Quetiapine Fumarate 25 mg 03/02/20 21:00 Quetiapine Fumarate 25 Mg Tablet PO BEDTIME GURMEET Quetiapine Fumarate 50 mg 03/02/20 21:00 03/02/20 20:12 Quetiapine Fumarate 25 Mg Tablet PO 50 mg BEDTIME GURMEET Administration Simvastatin 40 mg 03/02/20 21:00 03/02/20 20:12 Simvastatin 40 Mg Tablet PO 40 mg BEDTIME GURMEET Administration Sodium Chloride 1 syr 03/02/20 14:45 03/03/20 06:03 0.9% Sodium Chloride 10 Ml Disp.Syrin IVF 1 syr Q8HR GURMEET Administration Sodium Chloride 1 syr 03/02/20 14:35 0.9% Sodium Chloride 10 Ml Disp.Syrin IVF PRN PRN IV patent Vital Signs: Temp Pulse Resp BP Pulse Ox 03/02/20 09:26 98.0 F 75 18 126/63 97 Discharge Plan Discharge Patient Disposition: ADMITTED INPATIENT Discharge Problem: Chest pain ED Provider: VALE QUINTANA Condition: Stable
== END 2020-03-03 11:10 | disposition home or self-care (01) | DRG 948 ==
LOC: ED 09:25 → MEDSURG B 10:05
PROVIDERS: ADMIT Family Medicine; ATTEND Family Medicine
DX: R53.1 Weakness; F02.80 Dementia in other diseases classified elsewhere, unspecified severity, without behavioral disturbance, psychotic disturbance, mood disturbance, and anxiety; G30.9 Alzheimer's disease, unspecified